=== PATIENT | female | born 1960 | race Caucasian/White ===

== ENCOUNTER → 2018-08-29 | Outpatient (CLI) | payer BC ==
[~2018-08-29] MED LIST: BENADRYL; FISH OIL1 CAP PO; LEVOXYL; MOTRIN; VITAMINS
--- NOTE | 2018-08-29 10:22 | RADIOLOGY IMAGING REPORT ---
[place]AC[place] [facility] [place]IENT NAME: Piper Seo : 1960 MR: [id number] V: [id number] EXAM DATE: ORDERING PHYSICIAN: EUGENIO STREET TECHNOLOGIST: Location: [facility] Patient: Piper Seo : 1960 Visit/Account:[id number] Date of Sevice: 08/29/2018 DEXA Scan Clinical history: Menopause. Comparison: DEXA scan from 11/27/2010. LUMBAR SPINE: The bone mineral density (BMD) measured from L1-L4 correlates with a Z-score of -1.4 and a T-score of -1.6 which is osteopenia as defined by the World Health Organization. The corresponding risk of fra cture in the lumbar spine is 4 times increased compared with a young adult reference population. Thi s value has decrease by 16.2 % since the prior study. More than 5% change is considered significant. HIP: Bone mineral density (BMD) measured in the LEFT total hip region correlates with a Z-score -0.5 and a T-score of -0.7 which is normal as defined by the World Health Organization. The corresponding risk of fracture in the hip is 1-2 t imes increased compared to a young adult reference population. This value has decrease by 8.8 % since the prior study. More than 5% change is considered significant. T score left femoral neck -1.7 Bone mineral density (BMD) measured in the Femoral Neck region measures 0.798 g/cm?. IMPRESSION: 1. Lumbar spine: Stepanian. There has been 16.2% decrease in the bone mineral density since the pre vious exam. 2. Left Total Hip: Normal. There has been 8.8% decrease in the bone mineral density since the previ ous exam. 3. Femoral Neck: Bone Mineral Density is 0.798 g/cm? The next DEXA scan of this patient should include the following sites: L1-L4 and the left hip. FRAX? WHO Fracture Risk Assessment Tool link: <http://www.shef.ac.uk/FRAX/tool.jsp?locationValue=9> PLEASE NOTE: 1) The World Health Organization defines low BMD as follows: T-score Normal > -1 Osteopenia < -1 and > -2.5 Osteoporosis < -2.5 without fractures Established osteoporosis < -2.5 with fractures 2) In general, you may wish to consider: Diagnosis Treatment Follow-up DEXA Normal BMD Prevention 2-3 years Osteopenia Prevention/therapy 1-2 years Osteoporosis Therapy Yearly 3) Fracture risk estimated from the T-score is more accurate for vertebral fractures (often spontane ous) than for hip fractures. Report Dictated By: Doris Sims MD at 08/29/2018 10:15 AM Report E-Signed By: Doris Sims MD at 08/29/2018 10:17 AM WSN:[email or web address]
--- NOTE | 2018-08-29 11:43 | RADIOLOGY IMAGING REPORT ---
FACILITY: [facility] - [place] PATIENT NAME: TRISTEN GUALLPA : [id number] MR: [id number] V: [id number] EXAM DATE: ORDERING PHYSICIAN: EUGENIO STREET TECHNOLOGIST: Diandra Levi PROCEDURE:BILATERAL DIGITAL SCREENING MAMMOGRAM WITH CAD ASSISTED INTERPRETATION & 3D TOMOSYNTHESIS COMPARISON:Prior mammograms 02/25/15, 03/17/13, 02/27/12. INDICATIONS:SCREENING FINDINGS: The breasts are heterogeneously dense which can obscure small masses. The parenchymal pattern has remained stable allowing for difference in mammographic technique & patient positioning. There is no evidence of malignant appearing mass, malignant appearing calcifications or other secondary sign of malignancy in either breast. DIAGNOSTIC CATEGORY 1--NEGATIVE. RECOMMENDATIONS: ROUTINE MAMMOGRAM AND CLINICAL EVALUATION. IMPRESSION: BIRADS 1: Negative. No significant abnormality is seen. Dictated by: Doris Sims M.D. on 08/29/2018 at 9:54 Transcribed by: ROBBY on 08/29/2018 at 9:59 Approved by: Doris Sims M.D. on 08/29/2018 at 11:42 [facility]
== END ==
LOC: MAMO 01:41
PROVIDERS: ATTEND Nurse Practitioner Family
DX: Z12.31 Encounter for screening mammogram for malignant neoplasm of breast (principal); M85.88 Other specified disorders of bone density and structure, other site
CPT/HCPCS: 77063; 77067; 77080